=== PATIENT | female | born 2005 | race Caucasian/White ===

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

== ENCOUNTER 2023-07-30 23:06 | Emergency (ER) | payer SELFPAY ==
[2023-07-30 23:07] VITALS: BP 115/75; PULSE 97; RESP 18; TEMP 36.6; O2SAT 98; BMI 23.5
--- NOTE | 2023-07-30 23:24 | ED.VIS.FEGU ---
HPI HPI - Female History of Present Illness Chief Complaint: Female C/O Detail of Chief Complaint: Vaginal bleed Informant: patient Pain Onset: Today Narrative Narrative: Patient presents secondary to vaginal bleeding. She states she just had her normal menstrual cycle on July 20. She bled until the which is a normal timeframe for her. This morning she urinated and noted to be slightly dark. Later in the day after urinating she noted bright red blood. She feels it is coming from her vaginal area and states it is bright red blood and somewhat heavier than her normal period. She is wearing a maxi pad secondary to the degree of bleeding. She has slight pain. She has not recently been on control. She does not have an [employer] and has never had a formal pelvic exam. PFSH PFSH Medical History no medical history no medical history Home Medications No Known/Unobtainable [No Known Home Medications] 07/01/17 [History Last Taken Unknown] Allergy/AdvReac Type Severity Reaction Status Date / Time Penicillins Allergy Rash Verified 07/30/23 23:10 Social History Smoking Status: Never smoker ROS ROS ED Constitutional Constitutional ED: Denies chills or fever(s) ENT ENT ED: Denies rhinorrhea or sore throat Cardiovascular Cardiovascular: Denies chest pain or palpitations Respiratory/Chest Respiratory/Chest: Denies cough or dyspnea Gastrointestinal Gastrointestinal: Reports abdominal pain; Denies diarrhea, nausea or vomiting Genitourinary Genitourinary ED: Reports other Details: Vaginal bleeding ; Denies difficulty urinating or dysuria Musculoskeletal Musculoskeletal: Denies back pain or extremity pain Integumentary Denies Abrasions or rash Neurologic Neurologic: Reports headache(s); Denies weakness Psychiatric Psychiatric: Denies anxiety or depression Allergic/Immunologic Allergic/Immunologic ED: Denies lip swelling or urticaria EXAM Physical Exam Const Vital Signs: 07/30/23 23:07 Temperature 97.9 F Temperature Source Temporal Pulse Rate 97 Respiratory Rate 18 Blood Pressure 115/75 Blood Pressure Mean 88 Pulse Ox 98 Oxygen Delivery Method Room Air Positive well nourished and well developed General Appearance ED: well developed HEENT Reports normocephalic and head/scalp atraumatic Eyes PERRL and EOMs intact bilaterally Neck supple Chest Wall inspection of chest normal and palpation of chest normal Resp normal respiratory effort and clear to auscultation bilaterally Cardio regular rate and regular rhythm GI normal to inspection, nondistended, normoactive bowel sounds Palpation: soft Extremity normal to inspection Neuro oriented x3 and no sensory deficits noted Sensorium / Orientation: alert Motor Exam: strength 5/5 throughout Psych mental status grossly normal Skin no rashes or lesions noted MDM MDM MDM Narrative Medical decision making narrative: Urinalysis obtained to evaluate for infection/hematuria. Urine sent. Lab Data Attestation: I reviewed the patient's lab results. Labs: Laboratory Results - last 24 hr 07/30/23 23:35 Urine Color Yellow Urine Clarity Sl. Cloudy Urine pH 7.0 Ur Specific [place] 1.015 Urine Protein 30 H Urine Glucose (UA) Normal Urine Ketones Negative Urine Occult Blood 250 H Urine Nitrite Negative Urine Bilirubin Negative Urine Urobilinogen 4 H Ur Leukocyte Esterase 25 H Urine RBC 0-5 SEEN Urine WBC 0-5 SEEN Ur Squamous Epith Cells 0-5 SEEN Urine Bacteria 3+ Urine Mucus 0 SEEN Urine Test Negative Treatment and Re-Evaluation Narrative: Urinalysis does reveal 3+ bacteria, however 0-5 white cells and no nitrites. Given that she is not having significant dysuria I will send this for culture but not treat. test is negative. Pelvic examination was performed. No lesions or discharge are noted. Patient does have blood coming through the cervical os. I did discuss with her that I did not know a definite cause of her vaginal bleeding, however I do not see any evidence of infection or injury causing this. I will refer her to Dr. Anne, on-call for [employer] so patient can be established for further care. Return instructions are given. Discharge Plan Triage Chief Complaint: Female C/O ED Provider: Kati Auguste Dx/Rx/DC Orders Clinical Impression: DUB (dysfunctional uterine bleeding) Instructions: ED Dysfunctional Uterine Bleeding Prescriptions: No Action No Known Home Medications Primary Care Provider: Yadiel Martinez Referrals: Mani Anne MD [Med Staff - Active Staff] - 1-2 Weeks Yadiel Martinez MD [Primary Care Provider] - Disposition Disposition: Home, Self Care
[2023-07-30 23:40] LABS: Mucous, Urine 0 SEEN /hpf (<or=2+)
[2023-07-30 23:43] LABS: Color, Urine Yellow (Yellow); Glucose, Dipstick Normal (Normal); Ketone-Dipstick Negative (Negative); Leukocyte Esterase-Dipstick 25 /ul (Negative); Nitrite-Dipstick Negative (Negative); Occult Blood-Urine 250 /ul (Negative); Protein-Dipstick 30 mg/dl (Negative); Specific Gravity, Urine 1.015 (1.002-1.030); Urine Bilirubin Dipstick Negative (Negative); Urine Clarity Sl. Cloudy (Clear); Urine Urobilinogen 4 mg/dl (Normal)
[2023-07-30 23:58] LABS: Bacteria 3+ /hpf (None Seen); Squamous Epithelial Cells - UA 0-5 SEEN /hpf (5-10); White Blood Cells 0-5 SEEN /hpf (0-5)
[2023-07-30 23:59] LABS: Internal QC Validated? YES +Cl - CLEAR BKGD; Pregnancy, Urine Negative Negative; Red Blood Cells-Urine 0-5 SEEN /hpf (0-5)
== END 2023-07-31 00:29 | disposition home or self-care (01) ==
PROVIDERS: Emergency Provider Emergency Medicine; PCP Family Medicine; Visit Provider Emergency Medicine
DX: N93.8 Other specified abnormal uterine and vaginal bleeding (principal)
CPT/HCPCS: 81001; 81025; 87077; 87086; 87088; 87186; 99282